=== PATIENT | male | born 1970 | race Caucasian/White ===

== ENCOUNTER 2019-09-27 05:54 | Emergency (ER) | payer MEDICARE, OTHER ==
[~2019-09-27] VITALS: Ht 182.9 cm; Wt 97.0 kg
[2019-09-27 06:40] LABS: GLUCOSE,POINT OF CARE 110 MG/DL (70-110)
[2019-09-27 07:03] LABS: BASOPHILS % (AUTO) 1.2 % (0.0-2.0); EOSINOPHILS % (AUTO) 0.1 % (1.0-6.0); HEMATOCRIT 41.1 % (41-53); HEMOGLOBIN 13.4 g/dL (13.5-17.5); LYMPHOCYTES # (AUTO) 0.8 K/uL (1.0-4.8); LYMPHOCYTES % (AUTO) 9.1 % (22.0-44.0); MEAN CORPUSCULAR HEMOGLOBIN 30.9 pg (26.0-34.0); MEAN CORPUSCULAR HGB CONC 32.7 G/dL (31.0-37.0); MEAN CORPUSCULAR VOLUME 95 fL (80-100); MONOCYTES % (AUTO) 11.5 % (2.0-9.0); NEUTROPHILS # (AUTO) 6.7 K/uL (1.8-7.7); NEUTROPHILS % (AUTO) 78.1 % (40.0-70.0); PLATELET COUNT (AUTO) 128 K/uL (150-450); RED BLOOD CELL COUNT(AUTO) 4.35 MIL/uL (4.50-5.90); RED CELL DISTRIBUTION WIDTH 18.4 % (11.5-14.5)
[2019-09-27 07:18] LABS: ANION GAP 10 mmol/L (8-16); CALCIUM, TOTAL 9.5 mg/dL (8.8-10.5); CARBON DIOXIDE 32 mmol/L (22-29); CHLORIDE 98 mmol/L (98-107); CREATININE 10.19 mg/dL (0.60-1.30); GLOMERULAR FILTR. RATE CALC 5 mL/min (>60); GLUCOSE,RANDOM 95 mg/dL (70-110); POTASSIUM 4.3 mmol/L (3.5-5.1); SODIUM SERUM 140 mmol/L (136-145); UREA NITROGEN, BLOOD 58 mg/dL (7-18)
[2019-09-27 07:23] LABS: ALANINE AMINOTRANSFERASE 8 U/L (12-78); ALBUMIN 3.9 g/dL (3.4-5.0); ALKALINE PHOSPHATASE 69 U/L (46-116); ASPARTATE AMINOTRANSFERASE < 5 U/L (15-37); BILIRUBIN,TOTAL 0.8 mg/dL (0.1-1.0); TOTAL PROTEIN, SERUM 8.1 g/dL (6.4-8.2)
[2019-09-27 07:41] LABS: B-TYPE NATRIURETIC PEPTIDE 121 pg/mL (0-100)
[2019-09-27 08:41] LABS: GLUCOSE,POINT OF CARE 75 MG/DL (70-110)
[2019-09-27 13:48] LABS: GLUCOSE,POINT OF CARE 95 MG/DL (70-110)
[2019-09-27 14:08] VITALS: BP 150/71
== END 2019-09-27 15:10 | disposition home or self-care (01) ==
LOC: EMS 05:54
DX: E11.649 Type 2 diabetes mellitus with hypoglycemia without coma (principal); H11.31 Conjunctival hemorrhage, right eye; H54.7 Unspecified visual loss; E11.22 Type 2 diabetes mellitus with diabetic chronic kidney disease; N18.6 End stage renal disease; Z99.2 Dependence on renal dialysis; W19.XXXA Unspecified fall, initial encounter; Y93.89 Activity, other specified; Y92.89 Other specified places as the place of occurrence of the external cause; Y99.8 Other external cause status
CPT/HCPCS: 83605; 87040; 93005